=== PATIENT | male | born 1995 | race Hispanic/Latino ===

== ENCOUNTER 2022-08-24 11:09 | Emergency (ER) | payer SELFPAY ==
[~2022-08-24] VITALS: Ht 190.5 cm; Wt 136.1 kg
[2022-08-24] MEDS ORDERED: HALOPERIDOL LACTATE 5 MG/ML VIAL IV PRN (11:15)
[2022-08-24] MEDS ORDERED: LACTATED RINGER'S 1,000 ML IV ONE (11:15)
[2022-08-24 12:25] LABS: BASOPHILS % 0.1 % (0.0-1.0); EOSINOPHILS % 0.1 % (0.0-6.0); HEMATOCRIT 47.3 % (38.2-49.6); HEMOGLOBIN 16.7 g/dL (14.0-18.0); LYMPHOCYTES # (AUTO) 1.8 (1.0-3.2); LYMPHOCYTES % 13.5 % (18.0-39.1); MEAN CORPUSCULAR HEMOGLOBIN 32.7 pg (28-32); MEAN CORPUSCULAR HGB CONC 35.3 g/dL (31-35); MEAN CORPUSCULAR VOLUME 92.6 fL (81-99); MONOCYTES # (AUTO) 0.8 (0.2-0.8); MONOCYTES % 6.1 % (4.4-11.3); NEUTROPHILS # (AUTO) 10.7 (2.1-6.9); NEUTROPHILS % 79.9 % (38.7-80.0); PLATELET COUNT 220 x10e3/uL (140-360); RED BLOOD COUNT 5.11 x10e6/uL (4.3-5.7); RED CELL DISTRIBUTION WIDTH 12.6 % (11.7-14.4)
[2022-08-24 12:50] LABS: ALBUMIN 4.3 g/dL (3.5-5.0); ALBUMIN/GLOBULIN RATIO 1.3 (0.8-2.0); ANION GAP 20.3 mmol/L (8-16); CALCIUM 9.3 mg/dL (8.4-10.2); CREATININE, SERUM 0.94 mg/dL (0.72-1.25); POTASSIUM 3.3 mmol/L (3.5-5.1)
[2022-08-24] MEDS ORDERED: DIPHENHYDRAMINE HCL INJ 50 MG/ML VIAL IV ONE (13:00)
[2022-08-24] MEDS ORDERED: IOPAMIDOL 370 MG/ML 100 ML INFUS..BTL INJ ONE (13:14)
[2022-08-24] MEDS ORDERED: HALOPERIDOL LACTATE 5 MG/ML VIAL IV ONE (13:15)
[2022-08-24] MEDS ORDERED: DICYCLOMINE HCL 20 MG TAB PO ONE (13:45)
[2022-08-24 14:46] VITALS: O2SAT 98
[2022-08-24] MEDS ORDERED: BENTYL10 MG/1 ML PO (15:00)
[2022-08-24] MEDS ORDERED: CARAFATE1 GM PO (15:02)
== END 2022-08-24 15:00 | disposition home or self-care (01) ==
LOC: ER 11:14
DX: R10.13 Epigastric pain (principal); I10 Essential (primary) hypertension; F17.210 Nicotine dependence, cigarettes, uncomplicated
CPT/HCPCS: 36415; 71045; 74177; 80053; 83690; 85025; 99284; J1630; J7121; Q9967

== ENCOUNTER 2024-04-08 00:29 | Emergency (ER) | payer SELFPAY ==
[~2024-04-08] VITALS: Ht 190.5 cm; Wt 122.5 kg
[~2024-04-08 00:29] MED LIST: BENTYL10 MG/1 ML PO; CARAFATE1 GM PO
[2024-04-08 00:32] VITALS: PULSE 89; RESP 18; TEMP 98.6; O2SAT 99
[2024-04-08] MEDS ORDERED: ACETAMINOPHEN 325 MG TAB PO STA (00:42)
[2024-04-08] MEDS ORDERED: KETOROLAC TROMETHAMINE 60 MG/2 ML VIAL IM STA (00:42)
== END 2024-04-08 00:56 | disposition left against medical advice (07) ==
LOC: FSED 00:34
DX: R51.9 Headache, unspecified (principal)